=== PATIENT | female | born 1985 | race Caucasian/White ===

== ENCOUNTER 2017-01-30 14:40 | Emergency (ER) | payer MEDICAID, OTHER ==
[~2017-01-30] VITALS: Wt 79.0 kg
[2017-01-30] MEDS ORDERED: ONDANSETRON (ODT) 4 MG TAB ODT STA (15:12)
--- NOTE | 2017-01-30 15:21 | ERD ---
ER Documentation Chief Complaint Chief Complaint n/v/d HPI 31-year-old female history of bipolar disorder presents with one-day history nausea, vomiting and diarrhea. She reports up to 3 episodes of nonbloody nonbilious emesis, 2 episodes of diarrhea, with mid abdominal pain. The pain is localized in the mid abdomen, cramping. She denies any fevers but reports tactile fevers. She also went to a [employer] yesterday and had several different kinds of meats, she is concerned that it could have been foodborne. ROS All systems reviewed and are negative except as per history of present illness. Medications Home Meds Active Scripts Acetaminophen* (Tylophen*) 500 Mg Capsule, 1 CAP PO Q6H Y for PAIN AND OR ELEVATED TEMP, #20 CAP Prov:JAVED LI PA-C 01/30/17 Ondansetron Hcl* (Zofran*) 4 Mg Tablet, 4 MG PO Q6H for NAUSEA AND/OR VOMITING, #30 TAB Prov:JAVED LI PA-C 01/30/17 Cephalexin* (Keflex*) 500 Mg Capsule, 500 MG PO TID for 10 Days, CAP Prov:JAVED LI PA-C 01/30/17 Allergies Allergies: Coded Allergies: codeine (Verified Allergy, Unknown, 01/22/15) lorazepam (Verified Allergy, Unknown, 01/22/15) PMhx/Soc History of Surgery: Yes (ARM SX) Anesthesia Reaction: No Hx Neurological Disorder: No Hx Respiratory Disorders: No Hx Cardiac Disorders: No Hx Psychiatric Problems: No Hx Miscellaneous Medical Probl: No Hx Alcohol Use: Yes Hx Substance Use: Yes (METH) Hx Tobacco Use: Yes Smoking Status: Current every day smoker Physical Exam Vitals Vital Signs Date Time Temp Pulse Resp B/P Pulse Ox O2 Delivery O2 Flow Rate FiO2 01/30/17 14:42 99.5 95 20 111/70 99 Physical Exam General: Well-developed, well-nourished. The patient appears in no acute distress. HEENT: Head is normocephalic, atraumatic. No scleral icterus. Neck: Supple. Nontender. Lungs: Clear to auscultation. Normal air movement. Heart: Regular rate and rhythm. S1 and S2 are normal. No murmurs, gallops, or rubs. Abdomen: Soft, nontender, nondistended. Bowel sounds are normoactive. Extremities: No clubbing or cyanosis. Normal pulses. Moving extremities x 4. No weakness. Neurologic: Alert and oriented 3. No focal deficits. Skin: Normal turgor. No rash or lesions. Results 24 hrs Laboratory Tests Test 01/30/17 15:21 Bedside Urine pH (LAB) 7.0 Bedside Urine Protein (LAB) 1+ Bedside Urine Glucose (UA) Negative Bedside Urine Ketones (LAB) Trace Bedside Urine Blood Negative Bedside Urine Nitrite (LAB) Positive Bedside Urine Leukocyte Esterase (L Negative Current Medications Medications (Trade) Dose Ordered Sig/Koby Route PRN Reason Start Time Stop Time Status Last Admin Dose Admin Ondansetron HCl (Zofran Odt) 4 mg ONCE STAT ODT 01/30/17 15:12 01/30/17 15:13 DC 01/30/17 15:15 Procedures/MDM 31-year-old female presents with nausea vomiting diarrhea for 1 day, urine is negative, and her urine dip shows nitrite positive urine. Patient will be treated for UTI, patient symptoms also may be related to foodborne illness given that she did have several different foods at a [employer] yesterday but is likely self-limiting. Patient does not have any symptoms for pancreatitis, dissection, ovarian torsion, bowel obstruction, volvulus, diverticulitis, and abdominal abscess, acute hepatobiliary process. Departure Diagnosis: Primary Impression: Nausea vomiting and diarrhea Additional Impression: UTI (urinary tract infection) Condition: JAVED Prieto PA-C Jan 30, 2017 15:21
[2017-01-30 15:22] LABS: URINE BLOOD (Dip) POC Negative (NEGATIVE)
[2017-01-30] MEDS ORDERED: ACET500C5 PO (15:39)
[2017-01-30] MEDS ORDERED: CEPH-443 PO (15:39)
[2017-01-30] MEDS ORDERED: ONDA4TAB8 PO (15:39)
== END 2017-01-30 15:57 | disposition home or self-care (01) ==
LOC: FTE 14:40
DX: N39.0 Urinary tract infection, site not specified (principal); R19.7 Diarrhea, unspecified; F17.210 Nicotine dependence, cigarettes, uncomplicated
CPT/HCPCS: 81003; Z7502; Z7610; 99284

== ENCOUNTER 2017-12-22 13:30 | Inpatient (IN) | END 2017-12-27 12:45 | disposition home or self-care (01) | DRG 807 ==